=== PATIENT | female | born 1960 | race Caucasian/White ===

== ENCOUNTER → 2016-08-02 | Outpatient (CLI) | payer OTHER | LOC: HEART 5 10:18 | DX: J44.9 Chronic obstructive pulmonary disease, unspecified (principal) | CPT/HCPCS: 71020-FX; 94060; 94729 ==

== ENCOUNTER → 2016-10-01 | Outpatient (CLI) | payer OTHER | LOC: RT 10:36 | DX: R00.2 Palpitations (principal); R07.9 Chest pain, unspecified ==